=== PATIENT | female | born 1955 | race Caucasian/White ===

== ENCOUNTER 2017-08-24 09:27 | Day surgery (SDC) | payer OTHER ==
[~2017-08-24] VITALS: Ht 165.1 cm; Wt 89.5 kg
[~2017-08-24 09:27] MED LIST: CHOL100015 PO; LEVO100T5 PO; LOSA1TAB22 PO
[2017-08-24] MEDS ORDERED: LIDOCAINE 1%, 20ML ONE (11:07)
[2017-08-24] MEDS ORDERED: LACTATED RINGERS 1,000 ML IV SCH (12:30)
[2017-08-24] MEDS ORDERED: ISOSULFAN BLUE 10 MG/ML, 5ML IV ONE (12:30)
[2017-08-24] MEDS ORDERED: LIDOCAINE 1%, 2ML SQ PRN (12:30)
[2017-08-24] MEDS ORDERED: HEPARIN 1,000 UNITS/ML, 10ML ONE (12:30)
[2017-08-24 12:37] VITALS: BP 168/99
[2017-08-24] MEDS ORDERED: METOPROLOL PO (13:07)
[2017-08-24] MEDS ORDERED: LIDOCAINE-MPF 2% ,5ML ONE (13:18)
[2017-08-24] MEDS ORDERED: DEXAMETHASONE 4 MG/ML, 1ML ONE (13:18)
[2017-08-24] MEDS ORDERED: CEFAZOLIN 1,000 MG ONE (13:18)
[2017-08-24] MEDS ORDERED: PROPOFOL 10 MG/ML, 20ML ONE (13:18)
[2017-08-24] MEDS ORDERED: EPHEDRINE 50 MG/ML, 1ML ONE (13:18)
[2017-08-24] MEDS ORDERED: ONDANSETRON 2MG/ML, 2ML ONE (13:18)
[2017-08-24] MEDS ORDERED: MIDAZOLAM 1 MG/ML, 2ML ONE (13:18)
[2017-08-24] MEDS ORDERED: SUCCINYLCHOLINE 20 MG/ML, 10ML ONE (13:18)
[2017-08-24] MEDS ORDERED: FENTANYL PF 250 MCG/5ML ONE (13:18)
[2017-08-24] MEDS ORDERED: LIDOCAINE GEL 2%, 5ML ONE (13:18)
[2017-08-24] MEDS ORDERED: PROMETHAZINE 25 MG/ML, 1ML IV PRN (14:30)
[2017-08-24] MEDS ORDERED: LORazepam 2 MG/ML, 1ML IVPush PRN (14:30)
[2017-08-24] MEDS ORDERED: LABETALOL 5MG/ML, 20ML IV PRN (14:30)
[2017-08-24] MEDS ORDERED: MEPERIDINE/PF 25MG/0.5ML IVPush PRN (14:30)
[2017-08-24] MEDS ORDERED: hydrALAzine 20 MG/ML, 1ML IV PRN (14:30)
[2017-08-24] MEDS ORDERED: ALBUTEROL/IPRATROPIUM 2.5MG/0.5MG, 3 ML NPPB PRN (14:30)
[2017-08-24] MEDS ORDERED: DIAZEPAM 5 MG/ML, 2ML IVPush PRN (14:30)
[2017-08-24] MEDS ORDERED: OXYcodone 5 MG/5 ML ORAL.SOL UDC PO PRN (14:30)
[2017-08-24] MEDS ORDERED: MIDAZOLAM 1 MG/ML, 2ML IV PRN (14:30)
[2017-08-24] MEDS ORDERED: ONDANSETRON 2MG/ML, 2ML IVPush PRN (14:30)
[2017-08-24] MEDS ORDERED: ACETAMINOPHEN 325 MG TABLET PO PRN (14:30)
[2017-08-24] MEDS ORDERED: ACETAMINOPHEN 650 MG/20.3 ML UDC ONE (14:52)
[2017-08-24] MEDS ORDERED: OXYcodone 5 MG/5 ML ORAL.SOL UDC ONE (14:52)
[2017-08-24] MEDS ORDERED: FENTANYL PF 100 MCG/2ML ONE (14:58)
[2017-08-24] MEDS: FENTANYL PF 100 MCG/2ML IV PRN ×2 (15:01→15:09)
[2017-08-24] MEDS ORDERED: HYDROmorphone 1 MG/ML, 1ML ONE (15:15)
[2017-08-24] MEDS: HYDROmorphone 1 MG/ML, 1ML IV PRN ×2 (15:17→15:24)
[2017-08-24] MEDS ORDERED: LABETALOL 5MG/ML, 20ML ONE (15:34)
== END 2017-08-24 17:10 | disposition home or self-care (01) ==
LOC: CFH 09:27 → EDSTATUS 13:00 → OUT 17:10
PROVIDERS: ATTEND Surgery
DX: Z45.2 Encounter for adjustment and management of vascular access device (principal); C50.912 Malignant neoplasm of unspecified site of left female breast; I10 Essential (primary) hypertension; E03.9 Hypothyroidism, unspecified; Z85.42 Personal history of malignant neoplasm of other parts of uterus; Z90.710 Acquired absence of both cervix and uterus; Z98.890 Other specified postprocedural states; Z72.89 Other problems related to lifestyle
CPT/HCPCS: 19285; 19286; 19301; 36561; 38525; 38792; 77001; 88305; 88307; A9541; C1729; C1788; G0206; J0330; J0690; J1100; J1170; J1644; J2250; J2405; J2704; J3010; J3490; J7120

== ENCOUNTER → 2017-09-11 | Outpatient (CLI) | payer OTHER ==
[~2017-09-11] MED LIST changes: +METOPROLOL PO
== END | disposition home or self-care (01) ==
LOC: CVU 15:25
PROVIDERS: ATTEND Internal Medicine Cardiovascular Disease
DX: I10 Essential (primary) hypertension (principal); R94.31 Abnormal electrocardiogram [ECG] [EKG]; C50.919 Malignant neoplasm of unspecified site of unspecified female breast; Z90.12 Acquired absence of left breast and nipple
CPT/HCPCS: 93306

== ENCOUNTER → 2017-09-23 | Outpatient (CLI) | payer OTHER | END | disposition home or self-care (01) | LOC: ROC 08:09 | PROVIDERS: ATTEND Radiology Radiation Oncology | DX: C50.919 Malignant neoplasm of unspecified site of unspecified female breast (principal) | CPT/HCPCS: 99214; G0463 ==